=== PATIENT | female | born 1960 | race Caucasian/White ===

== ENCOUNTER 2017-07-06 06:24 | Day surgery (SDC) | payer OTHER ==
[2017-07-01 11:40] VITALS: BMI 23.3
[2017-07-06] MEDS: GENTAMICIN SULFATE 0.3% OPHTHALMIC (EYE DROPS) 5ML BOTTLE ONE ×4 (07:00→07:15)
[2017-07-06] MEDS: CYCLOPENTOLATE HCL 1% OPHTH SOLN 2 ML BOTTLE ONE ×4 (07:00→07:15)
[2017-07-06] MEDS: KETOROLAC TROMETHAMINE 0.5% 5 ML BOTTLE OPTHALMIC OD SCH ×4 (07:00→07:15)
[2017-07-06] MEDS: PHENYLEPHRINE 2.5% OPHTH SOLN 15 ML BOTTLE ONE ×4 (07:00→07:15)
[2017-07-06] MEDS: TROPICAMIDE 1% OPHTH SOLN 15 ML BOTTLE ONE ×4 (07:00→07:15)
[2017-07-06 07:11] VITALS: TEMP 98.2
[2017-07-06] MEDS ORDERED: BETAXOLOL HCL 0.25% OPHTHALMIC 10 ML DROPSBTL ONE (07:23)
[2017-07-06] MEDS ORDERED: BACITRACIN/POLYMYXIN OPH OINT 3.5 GM TUBE ONE (07:23)
[2017-07-06] MEDS ORDERED: TETRACAINE 0.5% OPHTH SOLN 2 ML BOTTLE ONE (07:24)
[2017-07-06] MEDS ORDERED: LIDOCAINE HCL/PF 2% SDV 5ML VIAL ONE (07:24)
[2017-07-06] MEDS ORDERED: ACETYLCHOLINE 1:100 INTRA-OCUL 20 MG/2 ML KIT ONE (07:24)
[2017-07-06] MEDS ORDERED: BUPIVACAINE HCL/PF 0.5% (5MG/ML) 10 ML VIAL ONE (07:24)
[2017-07-06] MEDS ORDERED: LIDOCAINE HCL 2% JELLY 10 ML CARTRIDGE ONE (07:24)
[2017-07-06] MEDS ORDERED: BSS (NA/CA/MG/K) BALANCED SALT SOLUTION OPHTH SOLN 15 ML BOTTLE ONE (07:24)
[2017-07-06] MEDS ORDERED: CARBACHOL 0.01% INTRA-OCULAR 1.5 ML VIAL ONE (07:25)
[2017-07-06] MEDS ORDERED: NEO/POLYMYX B SULF/DEXAMETH OPHTHALMIC 5ML BOTTLE ONE (07:25)
[2017-07-06] MEDS ORDERED: SUCCINYLCHOLINE CHLORIDE 200 MG/10 ML VIAL ONE (08:11)
[2017-07-06] MEDS ORDERED: PROPOFOL 20 ML ONE (08:11)
[2017-07-06] MEDS ORDERED: MIDAZOLAM HCL 2 MG/2 ML SINGLE DOSE VIAL ONE (08:11)
[2017-07-06] MEDS ORDERED: ACETAMINOPHEN 325 MG TABLET (FP) PO PRN (09:09)
[2017-07-06 10:11] VITALS: BP 112/70; PULSE 78
[2017-07-06] MEDS ORDERED: KETOROLAC TROMETHAMINE 0.5% 5 ML BOTTLE OPTHALMIC OD SCH (14:30)
== END 2017-07-06 10:00 | disposition home or self-care (01) ==
LOC: FASU 06:24
PROVIDERS: ATTEND Ophthalmology
PROC: 08RJ3JZ Replacement of Right Lens with Synthetic Substitute, Percutaneous Approach (ICD-10-PCS; principal; 2017-07-06 08:28)
DX: H26.8 Other specified cataract (principal)

== ENCOUNTER 2017-08-24 10:01 | Day surgery (SDC) | payer OTHER ==
[2017-08-17 12:13] VITALS: BMI 23.5
[2017-08-24 10:38] VITALS: TEMP 98.2
[2017-08-24] MEDS: CYCLOPENTOLATE HCL 1% OPHTH SOLN 2 ML BOTTLE ONE ×4 (10:40→10:55)
[2017-08-24] MEDS: GENTAMICIN SULFATE 0.3% OPHTHALMIC (EYE DROPS) 5ML BOTTLE ONE ×4 (10:40→10:55)
[2017-08-24] MEDS: PHENYLEPHRINE 2.5% OPHTH SOLN 15 ML BOTTLE ONE ×4 (10:40→10:55)
[2017-08-24] MEDS: TROPICAMIDE 1% OPHTH SOLN 15 ML BOTTLE ONE ×4 (10:40→10:55)
[2017-08-24] MEDS: KETOROLAC TROMETHAMINE 0.5% 5 ML BOTTLE OPTHALMIC ONE ×4 (10:40→10:55)
[2017-08-24] MEDS ORDERED: ACETAMINOPHEN 325 MG TABLET (FP) PO PRN (11:38)
[2017-08-24] MEDS ORDERED: PROPOFOL 20 ML ONE (11:42)
[2017-08-24] MEDS ORDERED: MIDAZOLAM HCL 2 MG/2 ML SINGLE DOSE VIAL ONE (11:42)
[2017-08-24] MEDS ORDERED: LIDOCAINE HCL 2% JELLY 10 ML CARTRIDGE ONE (11:54)
[2017-08-24] MEDS ORDERED: LIDOCAINE HCL/PF 2% SDV 5ML VIAL ONE (11:54)
[2017-08-24] MEDS ORDERED: BUPIVACAINE HCL/PF 0.5% (5MG/ML) 10 ML VIAL ONE (11:54)
[2017-08-24 14:14] VITALS: BP 120/72; PULSE 74
--- NOTE | 2017-08-25 10:10 | OP ---
DATE OF OPERATION: 08/24/2017 PROCEDURE: Planned extracapsular cataract extraction, phacoemulsification, insertion of posterior chamber lens implant, left eye. SURGEON: Nehemias Bernardo MD CORPORATE DEVELOPMENT OFFICER SURGEON: Nehemias Bernardo MD ANESTHESIA: Local standby. CLAY PLANT TREATER: Jus Joseph MD COMPLICATIONS: None. PREOPERATIVE DIAGNOSIS: Cataract, left eye. POSTOPERATIVE DIAGNOSIS: Cataract, left eye. FINDINGS AND PROCEDURES: After successful peribulbar anesthesia, lid blockage and digital massage was given to soften left eye. The patient was prepped and draped in the usual manner. I exposed the left eye. The lid speculum was inserted. After Tegaderm strips were placed on the lids, the microscope brought into position over the left eye. Attention focused on the superior fornix, where superior fornix-based flap was fashioned for 12 mm using Marcie scissors, 0.12 forceps, and hemostasis achieved with electrocautery. A limbal groove was then fashioned for 3 mm and dissected anterior into clear cornea, and then, a 3-mm blade was used to enter the anterior chamber. Under Viscoat, a 360-degree anterior capsulotomy was performed and the leaflet removed from the eye. Phacoemulsification was done in approximately 2 minutes time followed by irrigation aspiration of all cortical material leaving intact posterior capsule and a red reflex present. Provisc was injected in the posterior chamber to deepen the posterior capsule, and then, the implant was inspected carefully with the microscope, found to be free of defects, debris, and flaws, folded, placed in the Provisc filled cartridge, the cartridge placed in the injector. Implant was injected into the eye such that the inferior haptic was in the inferior capsular bag and the superior haptic was in the superior capsular bag and rotated in the horizontal position with the Sinskey hook. Provisc was aspirated out, replacing Miochol and Miostat and BSS. Then, the wound was closed with a single interrupted 10-0 Ethilon suture, tested for leakage, and none was found. The conjunctival tenon flap was reapproximated. At this point, the implant was fixated in the capsular bag centrally located with the round pupil intact, posterior capsule, and a red reflex present. Topical Betoptic S and Maxitrol ophthalmic suspensions were placed as was Bacitracin ophthalmic ointment, and then, the Tegaderm strips and speculum were removed from the lids. The lids were closed, and a patch and shield placed on the eye, and the patient was then discharged from the operating room to the recovery area in good condition having tolerated the procedure well. NEHEMIAS BERNARDO M.D. [id number]
== END 2017-08-24 14:00 | disposition home or self-care (01) ==
LOC: FASU 10:01
PROVIDERS: ATTEND Ophthalmology
PROC: 08RK3JZ Replacement of Left Lens with Synthetic Substitute, Percutaneous Approach (ICD-10-PCS; principal; 2017-08-24 12:15)
DX: H26.9 Unspecified cataract (principal)